=== PATIENT | male | born 1950 | race Caucasian/White ===

== ENCOUNTER 2024-03-23 07:36 | Day surgery (SDC) | payer MEDICARE, OTHER ==
[~2024-03-23] VITALS: Ht 182.9 cm; Wt 97.2 kg
[~2024-03-23 07:36] MED LIST: ASPIRIN EC81 MG PO; CEFAZOLIN SODIUM 2 GM/20 ML SYR IV SCH; CRESTOR5 MG PO; ENOXAPARIN SODIUM 80 MG/0.8 ML SYR SUB-Q SCH; FLOVENT DISKUS50 MCG INH; FOLIC ACID1 MG PO; IBLOOD GLUCOSE TEST STRIP 1 EA TEST VI PRN; LACTATED RINGER'S 1,000 ML IV SCH; LIDOCAINE HCL 1% 5 ML SDV INJ ONE; METOPROLOL SUCC50 MG PO; MIDAZOLAM HCL 5 MG/5 ML VIAL IV PRN; OMEGA 3 1,0001 EACH PO; OMEPRAZOLE20 MG PO; TAMSULOSIN HCL0.4 MG PO; VITAMIN D32000 UNI1 PO; WARFARIN SODIUM5 MG PO; ZOLPIDEM TARTRAT5 MG PO; fentaNYL citrate 100 MCG/2 ML VIAL IV PRN
[2024-03-23 07:57] VITALS: BP 144/68
[2024-03-23] MEDS ORDERED: fentaNYL citrate 100 MCG/2 ML VIAL ONE (08:40)
[2024-03-23] MEDS ORDERED: MIDAZOLAM HCL 5 MG/5 ML VIAL ONE (08:40)
--- NOTE | 2024-03-23 09:39 | NUR ---
03/23/24 0939 Tamara Amos [id number]-PATIENT ARRIVED TO PACU ON 3L NC RR EVEN PATIENT LAYING LEFT LATERAL ABDOMEN SOFT. REACTIVE TO VERBAL STIMULI EYES CLOSED PATIENT TALKING MUMBLED SPEECH. DOZES BACK TO SLEEP. IVF INFUSING.
[2024-03-23 10:25] VITALS: BP 129/86
--- NOTE | 2024-03-24 05:46 | OR ---
[facility] [address], [place] [address] Signed DATE OF OPERATION: 03/23/2024 SURGEON: Leticia Benson MD PREOPERATIVE DIAGNOSES: 1. Personal history of hyperplastic colonic polyps in 2015 at age 64. 2. Internal hemorrhoids associated with intermittent rectal bleeding. POSTOPERATIVE DIAGNOSIS: Minimal to moderate internal hemorrhoids. PROCEDURE: Colonoscopy without biopsies. ESTIMATED BLOOD LOSS: None. INDICATIONS: Chris is a 73-year-old gentleman, asked to see me for a followup screening colonoscopy. He came to me in 2014 at the age of 64 for his initial screening colonoscopy. 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 He takes Coumadin and aspirin in that regard. He likes to keep his INR around 2.5 to 3.5. Previously, we took him off his Coumadin for four days and had him stop the aspirin just three days before the procedure. He had declined Lovenox at that time. On this occasion, we let him stop the Coumadin and continued the aspirin and we gave him Lovenox for bridge therapy. He said that worked out well. We did find internal hemorrhoids along with two tiny hyperplastic polyps. He did well with Versed and fentanyl. We took a lipoma off the ileocecal valve. He came back to the office in 2019 at the age of 68. He was concerned that he had a change in bowel habits. He felt like his stools had become ribbonlike associated with some rectal bleeding. He was unsure if that was from his internal hemorrhoids. But he certainly had some constipation at that time. We had offered him a colonoscopy, but he decided for go that and wait. Currently, he said he has no lower GI complaints other than some intermittent rectal bleeding associated with the hemorrhoids. He has no family history of colon cancer or polyps. In the office, I gave him a pamphlet on colonoscopy. He understands the nature of the test. There is risk including, but not limited to gas bloating, crampy abdominal pain, bleeding, perforation requiring surgery, and missed diagnosis. We also reviewed the written instructions for the bowel prep once again. We also went through his medications very carefully as described above. He understands the need for IV conscious sedation. His would be available to take him home. He had expressed understanding and wished to proceed. Electronically Signed By: LETICIA BENSON MD 03/24/24 0546 PATIENT NAME: CHRIS MORSE OPERATIVE REPORT DATE OF : 54 REPORT #: [id number] PHYSICIAN: LETICIA BENSON MD PCP: DELFINO MARTINEZ MD REPORT IS CONFIDENTIAL AND NOT TO BE RELEASED WITHOUT AUTHORIZATION [facility] [address], [place] [address] Signed DESCRIPTION OF PROCEDURE: Chris was taken into our endoscopy suite, placed in the left lateral decubitus position. He was given 2 g of Ancef because of the mitral valve replacement. He gave himself his Lovenox yesterday and we gave him another dose of Lovenox today. He has three more days of Lovenox to get himself at home. He will resume the Coumadin today after the procedure. He has been on the aspirin all the way through. A digital rectal exam was performed. No external hemorrhoids. Good sphincter tone. No masses. The adult colonoscope was introduced, advanced all the way up to the hepatic flexure. It was buckling a bit in the left colon. We had to give some additional sedation and use moderate abdominal compression. We came around the hepatic flexure and right up near the ileocecal valve. It took just a few more minutes to get into the cecum itself and suctioned out the liquid stool. Overall, his prep was good. We could easily see the appendiceal orifice and ileocecal valve. We slowly withdrew the scope. We took several pictures throughout for photodocumentation. He has no diverticulosis. No polyps on this occasion. The rectum was unremarkable. Upon retroflexion of scope he has minimal to moderate internal hemorrhoid columns. After this, the gas was suctioned out, colonoscope removed. Chris tolerated the procedure quite well. RECOMMENDATIONS: Chris is welcome to return in 10 years for repeat screening colonoscopy if his health holds up. He will resume his aspirin and Coumadin, today and finish three more days of Lovenox while the Coumadin is coming up therapeutic levels. Leticia Benson MD ALB/MODL /[id number] cc: MD Dr. Delfino Lee [facility] Electronically Signed By: LETICIA BENSON MD 03/24/24 0546 PATIENT NAME: CHRIS MORSE OPERATIVE REPORT DATE OF : 54 REPORT #: [id number] PHYSICIAN: LETICIA BENSON MD PCP: DELFINO MARTINEZ MD REPORT IS CONFIDENTIAL AND NOT TO BE RELEASED WITHOUT AUTHORIZATION [facility] [address] [place], [place] [address] Signed Copies: LETICIA BENSON MD ~ Electronically Signed By: LETICIA BENSON MD 03/24/24 0546 PATIENT NAME: CHRIS MORSE OPERATIVE REPORT DATE OF : 54 REPORT #: [id number] PHYSICIAN: LETICIA BENSON MD PCP: DELFINO MARTINEZ MD REPORT IS CONFIDENTIAL AND NOT TO BE RELEASED WITHOUT AUTHORIZATION
== END 2024-03-23 10:35 | disposition home or self-care (01) ==
LOC: DS 07:36
PROVIDERS: ATTEND Colon & Rectal Surgery
PROC: 0DJD8ZZ Inspection of Lower Intestinal Tract, Via Natural or Artificial Opening Endoscopic (ICD-10-PCS; principal; 2024-03-23 09:00)
DX: Z12.11 Encounter for screening for malignant neoplasm of colon (principal); K64.8 Other hemorrhoids; E78.5 Hyperlipidemia, unspecified; I10 Essential (primary) hypertension; K21.9 Gastro-esophageal reflux disease without esophagitis; M19.90 Unspecified osteoarthritis, unspecified site; Z79.82 Long term (current) use of aspirin; Z86.0100 Personal history of colon polyps, unspecified
CPT/HCPCS: 99153; G0500; J0690; J1650; J2250; J3010; J7121